=== PATIENT | male | born 1975 | race Two or more races ===

== ENCOUNTER 2023-08-01 09:31 | Inpatient (IN) | payer MEDICAID ==
[~2023-08-01] VITALS: Ht 172.7 cm; Wt 222.5 kg
[2023-08-01] VITALS (22 sets, daily range): BP systolic 90–194; BP diastolic 37–103; PULSE 71–116; RESP 11–28; O2SAT 82–99
[~2023-08-01 09:31] MED LIST: LYR25C CORPAK; [UNRECOGNIZED DRUG - CODE] PO; [UNRECOGNIZED DRUG - OTHER] TOP; etomidate 2mg/ml inj. ONE
[2023-08-01 10:19] LABS: ABG BASE EXCESS -1.2 mmol/L (-2.0-2.0); ABG HCO3 34.8 mmol/L (22.0-26.0); ABG OXYGEN SATURATION 95.3 % (94-97); ABG PCO2 (T) 126.3 mmHg (35.0-48.0); ABG PH (T) 7.058 (7.340-7.440); ABG PO2 (T) 104.9 mmHg (75.0-100.0); ALLEN'S TEST POSITIVE; FCOHb 0.2 % (0.0-3.9); FHHb 4.7 % (0.0-5.0); FLOW 15 L/min; FMetHb 0.6 % (0.0-1.5); FO2Hb 94.5 % (94-97); MODE MASK - NRB; TOTAL HEMOGLOBIN 18.3 G/dl (14.0-17.9)
[2023-08-01 10:53] LABS: BASOPHILS # (AUTO) 0.1 X10'3 (0-0.2); BASOPHILS % (AUTO) 0.7 % (0-1); EOSINOPHILS % (AUTO) 0.2 % (0-6)
[2023-08-01 10:55] LABS: LYMPHOCYTES % (AUTO) 9.7 % (21-51); MEAN CORPUSCULAR HEMOGLOBIN 30.8 PG (27.0-31.0); MEAN PLATELET VOLUME 8.4 FL (7.4-10.4); MONOCYTES # (AUTO) 1.2 X10'3 (0-0.9); MONOCYTES % (AUTO) 11.7 % (2-12); NEUTROPHILS # (AUTO) 7.8 X10'3 (1.8-7.7); NEUTROPHILS % (AUTO) 77.7 % (42-75); PLATELET COUNT 261 X10'3 (140-440); WHITE BLOOD COUNT 10.1 X10'3 (4.5-11.0)
[2023-08-01 10:56] LABS: INR 1.4 INR; PROTHROMBIN TIME 14.6 SECONDS (9.0-12.0)
[2023-08-01 11:00] LABS: ALANINE AMINOTRANSFERASE 62 U/L (12-78); ALBUMIN/GLOBULIN RATIO 0.6 (1.1-1.5); ALKALINE PHOSPHATASE 86 IU/L (46-116); ANION GAP 7 (8-16); ASPARTATE AMINO TRANSFERASE 60 U/L (10-37); BILIRUBIN,TOTAL 2.7 MG/DL (0.1-1.0); BLOOD UREA NITROGEN 29 MG/DL (7-18); BUN/CREATININE RATIO 16.5 (10.0-20.0); CALCIUM 8.5 MG/DL (8.5-10.1); CHLORIDE 98 MMOL/L (99-107); CREATININE 1.76 MG/DL (0.60-1.10); GLUCOSE 129 MG/DL (70-104); SODIUM 138 MMOL/L (135-145); TOTAL CARBON DIOXIDE 33.5 MMOL/L (24-32); TOTAL PROTEIN 7.8 G/DL (6.4-8.2); eCRCL 51 ML/MIN; eGFR 42 ML/MIN
[2023-08-01 11:09] LABS: PRO BRAIN NATRIURETIC PEPTIDE 5640 PG/ML (0-125)
[2023-08-01] MEDS ORDERED: labetalol 20mg/4ml (5mg/ml) syringe IV PRN (11:20)
[2023-08-01 11:24] LABS: POTASSIUM 4.9 MMOL/L (3.5-5.1)
[2023-08-01] MEDS ORDERED: morphine 2 MG/ML inj. syringe IV PRN (11:25)
[2023-08-01] MEDS ORDERED: acetaminophen 325mg tablet PO PRN ×2 (11:25)
[2023-08-01] MEDS ORDERED: morphine 4 MG/ML inj SYRINge IV PRN (11:25)
[2023-08-01] MEDS ORDERED: ondansetron/PF 4mg/2ml inj IV PRN (11:25)
[2023-08-01] MEDS ORDERED: magnesium hydroxide 30ml (MOM) UD suspension PO PRN (11:25)
[2023-08-01 11:28] LABS: HEMATOCRIT 53.4 % (42.0-52.0); HEMOGLOBIN 17.2 g/dl (14.0-17.9); MEAN CORPUSCULAR HGB CONC 32.2 g/dL (33.0-36.5); MEAN CORPUSCULAR VOLUME 95.7 FL (78-98); RED BLOOD COUNT 5.57 X10'6 (4.70-6.10); RED CELL DISTRIBUTION WIDTH 15.3 % (11.5-14.5)
[2023-08-01 11:41] LABS: ABG HCO3 37.9 mmol/L (22.0-26.0); ABG OXYGEN SATURATION 98.7 % (94-97); ABG PCO2 (T) 126.9 mmHg (35.0-48.0); ABG PH (T) 7.093 (7.340-7.440); ABG PO2 (T) 179.4 mmHg (75.0-100.0); ALLEN'S TEST NEGATIVE; FCOHb 0.7 % (0.0-3.9); FHHb 1.3 % (0.0-5.0); FMetHb 0.7 % (0.0-1.5); FO2Hb 97.3 % (94-97); MODE MASK - BIPAP; TIDAL VOLUME 500 mL; TOTAL HEMOGLOBIN 18.3 G/dl (14.0-17.9)
[2023-08-01 12:10] LABS: NUCLEATED RED BLOOD CELLS 3 /100WBC (0-0); TOTAL CELLS COUNTED 100
[2023-08-01 12:11] LABS: ANISOCYTOSIS 1+; PLATELET ESTIMATE NORMAL; POIKILOCYTOSIS FEW; POLYCHROMASIA FEW; STOMATOCYTES FEW
[2023-08-01] MEDS: hydrALAZINE 20mg/ml inj. IV ONE (12:11)
[2023-08-01] MEDS: propofol 1000mg/100ml bottle 100 ML IV ONE (12:11)
[2023-08-01 12:14] LABS: HEMOGLOBIN A1C 6.1 % (4.5-6.2)
[2023-08-01] MEDS: furosemide 10 MG/1 ML 10ml inj IV ONE (12:20)
[2023-08-01] MEDS: LIDOcaine 2% 10ml TOPICAL JELLY (Urojet) TP ONE (12:20)
[2023-08-01 12:27] LABS: CHOL/HDL RATIO 3.6 (0.00-4.99); CHOLESTEROL 140 MG/DL (0-200); FREE T4 (FREE THYROXINE) 1.09 NG/DL (0.73-1.40); HDL CHOLESTEROL 39 MG/DL (35-60); LDL CHOLESTEROL 90 MG/DL (50-100); TRIGLYCERIDES 96 MG/DL (20-135)
[2023-08-01 12:51] LABS: THYROID STIMULATING HORMONE 3.99 ulU/ml (0.34-4.50)
[2023-08-01] MEDS: LidoCAINE 2% Topical Jelly 11mL syringe (UROJET) TOP ONE (13:38)
[2023-08-01] MEDS: fentaNYL/PF 50MCG/1 ML 2ML syringe IV PRN (13:39)
[2023-08-01] MEDS: propofol 1000mg/100ml bottle 100 ML IV SCH ×2 (13:40→20:50)
[2023-08-01] MEDS: FENTANYL-0.9 % NACL/PF 100 ML IV PRN (13:42)
[2023-08-01] MEDS: CefTRIAXone/D5W-Rocephin 1gm 50 ML IV SCH (13:49)
[2023-08-01 14:20] LABS: ABG BASE EXCESS -1.3 mmol/L (-2.0-2.0); ABG OXYGEN SATURATION 88.9 % (94-97); ABG PCO2 (T) 80.5 mmHg (35.0-48.0); ABG PO2 (T) 63.1 mmHg (75.0-100.0); ALLEN'S TEST POSITIVE; FCOHb 1.5 % (0.0-3.9); FHHb 10.9 % (0.0-5.0); FMetHb 0.3 % (0.0-1.5); FO2Hb 87.3 % (94-97); MODE PRVC; PATIENT TEMPERATURE 37.1; PEEP 15 cm H2O; RESPIRATORY RATE 22 b/min; TIDAL VOLUME 400 mL; TOTAL HEMOGLOBIN 17.6 G/dl (14.0-17.9)
[2023-08-01] MEDS: azithromycin/NS 500mg/250ml 250 ML IV SCH (18:40)
[2023-08-01] MEDS ORDERED: furosemide 40mg/4ml inj IV SCH (20:00)
[2023-08-01] MEDS: heparin, porcine 5000 units/ml vial SQ SCH (20:22)
[2023-08-01 20:46] LABS: BILIRUBIN,URINE SMALL (Neg); CLARITY,URINE SLIGHTLY CLOUDY (Clear); COLOR,URINE YELLOW (Yellow); GLUCOSE, URINE NEGATIVE (Neg); KETONES,URINE NEGATIVE (Neg); LEUKOCYTE ESTERASE ,URINE TRACE (Neg); NITRITES, URINE NEGATIVE (Neg); OCCULT BLOOD,URINE SMALL (Neg); PROTEIN,URINE 30 mg/dl (Neg)
[2023-08-01] MEDS: furosemide 40mg/4ml inj IV SCH (20:51)
[2023-08-01 20:57] LABS: UA COLLECTION TYPE FOLEY CATH
[2023-08-01 21:01] LABS: BACTERIA,URINE FEW /HPF (Neg); SQUAMOUS EPITHELIAL CELL,UR FEW /LPF (FEW); TRANSITIONAL EPI CELLS,URINE FEW /HPF
[2023-08-01 21:59] LABS: URINE AMPHETAMINE SCREEN NEGATIVE (Neg); URINE BARBITUATE SCREEN NEGATIVE (Neg); URINE BENZODIAZEPINES SCREEN NEGATIVE (Neg); URINE CANNABINOID SCREEN POSITIVE (Neg); URINE COCAINE SCREEN NEGATIVE (Neg); URINE METHADONE SCREEN NEGATIVE (Neg); URINE OPIATE SCREEN NEGATIVE (Neg); URINE PHENCYCLIDINE SCREEN NEGATIVE (Neg)
[2023-08-02] VITALS (33 sets, daily range): BP systolic 85–119; BP diastolic 37–78; PULSE 73–99; RESP 12–22; O2SAT 68–96
[2023-08-02 03:14] LABS: ABG BASE EXCESS 7.1 mmol/L (-2.0-2.0); ABG HCO3 32.5 mmol/L (22.0-26.0); ABG OXYGEN SATURATION 95.1 % (94-97); ABG PCO2 (T) 46.9 mmHg (35.0-48.0); ABG PH (T) 7.457 (7.340-7.440); ABG PO2 (T) 70.4 mmHg (75.0-100.0); ALLEN'S TEST Modified; FCOHb 0.9 % (0.0-3.9); FHHb 4.9 % (0.0-5.0); FMetHb 0.1 % (0.0-1.5); FO2Hb 94.1 % (94-97); MODE ac/prvc; PATIENT TEMPERATURE 36.5; PEEP 15 cm H2O; RESPIRATORY RATE 22 b/min; TIDAL VOLUME 425 mL
[2023-08-02 04:43] LABS: BASOPHILS # (AUTO) 0.1 X10'3 (0-0.2); BASOPHILS % (AUTO) 0.6 % (0-1); EOSINOPHILS # (AUTO) 0.2 X10'3 (0-0.9); EOSINOPHILS % (AUTO) 1.8 % (0-6); HEMATOCRIT 47.8 % (42.0-52.0); HEMOGLOBIN 15.4 g/dl (14.0-17.9); LYMPHOCYTES % (AUTO) 9.6 % (21-51); MEAN CORPUSCULAR HGB CONC 32.2 g/dL (33.0-36.5); MEAN CORPUSCULAR VOLUME 96.1 FL (78-98); MONOCYTES # (AUTO) 1.3 X10'3 (0-0.9); NEUTROPHILS # (AUTO) 7.7 X10'3 (1.8-7.7); PLATELET COUNT 165 X10'3 (140-440); RED BLOOD COUNT 4.97 X10'6 (4.70-6.10); RED CELL DISTRIBUTION WIDTH 15.8 % (11.5-14.5); WHITE BLOOD COUNT 10.3 X10'3 (4.5-11.0)
[2023-08-02 04:55] LABS: APTT 26 SECONDS (22-32); INR 1.2 INR; PROTHROMBIN TIME 13.1 SECONDS (9.0-12.0)
[2023-08-02 05:05] LABS: ALANINE AMINOTRANSFERASE 63 U/L (12-78); ALBUMIN 2.1 G/DL (3.4-5.0); ALBUMIN/GLOBULIN RATIO 0.6 (1.1-1.5); ALKALINE PHOSPHATASE 53 IU/L (46-116); ANION GAP 4 (8-16); ASPARTATE AMINO TRANSFERASE 59 U/L (10-37); BILIRUBIN,TOTAL 2.6 MG/DL (0.1-1.0); BLOOD UREA NITROGEN 30 MG/DL (7-18); BUN/CREATININE RATIO 17.4 (10.0-20.0); CALCIUM 8.3 MG/DL (8.5-10.1); CHLORIDE 102 MMOL/L (99-107); CREATININE 1.72 MG/DL (0.60-1.10); GLUCOSE 89 MG/DL (70-104); MAGNESIUM 1.7 MG/DL (1.5-2.4); PHOSPHORUS 4.9 MG/DL (2.3-4.5); PRO BRAIN NATRIURETIC PEPTIDE 2242 PG/ML (0-125); SODIUM 142 MMOL/L (135-145); TOTAL CARBON DIOXIDE 35.9 MMOL/L (24-32); TOTAL PROTEIN 5.5 G/DL (6.4-8.2); TRIGLYCERIDES 129 MG/DL (20-135); eCRCL 52 ML/MIN; eGFR 43 ML/MIN
[2023-08-02] MEDS: pantoprazole 40 MG vial IV SCH ×3 (06:35→20:08)
[2023-08-02] MEDS ORDERED: acetaminophen 325mg/10.15ml oral unit dose solution OGT PRN ×2 (10:56)
[2023-08-02] MEDS ORDERED: NO HOME MEDS (11:15)
[2023-08-02] MEDS: mineral oil/petrolatum ophthal oint EACHEYE SCH (14:08)
[2023-08-02] MEDS ORDERED: heparin 10,000 units/1 ML INJ IV ONE (21:05)
[2023-08-02] MEDS: aspirin 81mg tab.chew PO ONE (21:27)
[2023-08-02 21:31] LABS: MEAN CORPUSCULAR VOLUME 95.7 FL (78-98); NEUTROPHILS # (AUTO) 8.3 X10'3 (1.8-7.7); RED CELL DISTRIBUTION WIDTH 15.4 % (11.5-14.5)
[2023-08-02 21:33] LABS: BASOPHILS % (AUTO) 0.4 % (0-1); EOSINOPHILS # (AUTO) 0.2 X10'3 (0-0.9); EOSINOPHILS % (AUTO) 1.5 % (0-6); HEMATOCRIT 48.7 % (42.0-52.0); HEMOGLOBIN 15.6 g/dl (14.0-17.9); LYMPHOCYTES # (AUTO) 0.7 X10'3 (1.1-4.8); LYMPHOCYTES % (AUTO) 6.5 % (21-51); MEAN CORPUSCULAR HEMOGLOBIN 30.6 PG (27.0-31.0); MEAN PLATELET VOLUME 8.4 FL (7.4-10.4); MONOCYTES # (AUTO) 1.1 X10'3 (0-0.9); MONOCYTES % (AUTO) 10.7 % (2-12); NEUTROPHILS % (AUTO) 80.9 % (42-75); PLATELET COUNT 185 X10'3 (140-440); RED BLOOD COUNT 5.09 X10'6 (4.70-6.10); WHITE BLOOD COUNT 10.2 X10'3 (4.5-11.0)
[2023-08-02] MEDS: heparin 25,000 UNIT/250ml bag 250 ML IV PRN (21:39)
[2023-08-02 21:48] LABS: APTT 27 SECONDS (22-32); INR 1.3 INR; PROTHROMBIN TIME 13.7 SECONDS (9.0-12.0)
[2023-08-02] MEDS: MESSAGE TO NURSING IV ONE (22:16)
[2023-08-03] VITALS (35 sets, daily range): BP systolic 77–118; BP diastolic 29–66; PULSE 82–103; RESP 22–24; O2SAT 69–87
[2023-08-03] MEDS: methylPREDNISolone sod succ 125mg/2ml vial IV ONE (00:58)
[2023-08-03] MEDS: NORepinephrine 8mg/ 250ml NS 250 ML IV SCH (00:59)
[2023-08-03 01:37] LABS: BASOPHILS # (AUTO) 0.2 X10'3 (0-0.2); BASOPHILS % (AUTO) 1.9 % (0-1); EOSINOPHILS # (AUTO) 0.2 X10'3 (0-0.9); EOSINOPHILS % (AUTO) 2.1 % (0-6); HEMATOCRIT 47.5 % (42.0-52.0); HEMOGLOBIN 15.1 g/dl (14.0-17.9); LYMPHOCYTES # (AUTO) 0.6 X10'3 (1.1-4.8); LYMPHOCYTES % (AUTO) 5.2 % (21-51); MEAN CORPUSCULAR HEMOGLOBIN 30.3 PG (27.0-31.0); MEAN CORPUSCULAR HGB CONC 31.8 g/dL (33.0-36.5); MEAN CORPUSCULAR VOLUME 95.3 FL (78-98); MEAN PLATELET VOLUME 8.4 FL (7.4-10.4); MONOCYTES # (AUTO) 1.2 X10'3 (0-0.9); MONOCYTES % (AUTO) 10.5 % (2-12); NEUTROPHILS % (AUTO) 80.3 % (42-75); PLATELET COUNT 194 X10'3 (140-440); RED BLOOD COUNT 4.99 X10'6 (4.70-6.10); RED CELL DISTRIBUTION WIDTH 15.4 % (11.5-14.5); WHITE BLOOD COUNT 11.2 X10'3 (4.5-11.0)
[2023-08-03 01:50] LABS: ALANINE AMINOTRANSFERASE 60 U/L (12-78); ALBUMIN 2.1 G/DL (3.4-5.0); ALBUMIN/GLOBULIN RATIO 0.5 (1.1-1.5); ALKALINE PHOSPHATASE 67 IU/L (46-116); ANION GAP 2 (8-16); ASPARTATE AMINO TRANSFERASE 85 U/L (10-37); BILIRUBIN,TOTAL 2.9 MG/DL (0.1-1.0); BLOOD UREA NITROGEN 31 MG/DL (7-18); BUN/CREATININE RATIO 15.8 (10.0-20.0); CALCIUM 8.3 MG/DL (8.5-10.1); CHLORIDE 99 MMOL/L (99-107); CREATININE 1.96 MG/DL (0.60-1.10); GLUCOSE 81 MG/DL (70-104); POTASSIUM 4.2 MMOL/L (3.5-5.1); SODIUM 140 MMOL/L (135-145); TOTAL CARBON DIOXIDE 39.1 MMOL/L (24-32); eCRCL 46 ML/MIN; eGFR 37 ML/MIN
[2023-08-03 01:54] LABS: MAGNESIUM 1.5 MG/DL (1.5-2.4); PHOSPHORUS 5.7 MG/DL (2.3-4.5)
[2023-08-03 03:56] LABS: ABG BASE EXCESS 5.9 mmol/L (-2.0-2.0); ABG PCO2 (T) 64.3 mmHg (35.0-48.0); ABG PH (T) 7.344 (7.340-7.440); ABG PO2 (T) 49.1 mmHg (75.0-100.0); ALLEN'S TEST Modified; FHHb 18.8 % (0.0-5.0); FO2Hb 80.2 % (94-97); MODE ac/prvc; PATIENT TEMPERATURE 37.6; PEEP 18 cm H2O; RESPIRATORY RATE 24 b/min; TIDAL VOLUME 425 mL
[2023-08-03 04:07] LABS: INR 1.2 INR; PROTHROMBIN TIME 12.2 SECONDS (9.0-12.0)
[2023-08-03] MEDS: heparin 10,000 units/1 ML INJ IV PRN (04:21)
[2023-08-03] MEDS: MESSAGE TO NURSING IV ONE ×3 (04:26→22:09)
[2023-08-03] MEDS: atorvastatin 10mg tablet PO SCH (07:29)
[2023-08-03] MEDS: aspirin 81mg tab.chew PO SCH (07:29)
[2023-08-03] MEDS: methylPREDNISolone sod succ 125mg/2ml vial IV SCH (07:31)
[2023-08-03] MEDS: methylPREDNISolone sod succ/PF 40mg inj. IV SCH (16:16)
[2023-08-03] MEDS: midazolam 100mg in NS 100ml 100 ML IV PRN (16:17)
[2023-08-03] MEDS: CISatracurium besylate inj. 100 MG in normal saline 100ml IV soln 90 ML IV PRN (20:34)
[2023-08-04] VITALS (36 sets, daily range): BP systolic 110–138; BP diastolic 55–84; PULSE 62–76; RESP 23–24; O2SAT 89–94
[2023-08-04] MEDS: heparin 25,000 UNIT/250ml bag 250 ML IV PRN (00:29)
[2023-08-04 02:35] LABS: APTT 48 SECONDS (22-32); INR 1.3 INR; PROTHROMBIN TIME 13.7 SECONDS (9.0-12.0)
[2023-08-04 02:36] LABS: ALANINE AMINOTRANSFERASE 347 U/L (12-78); ALBUMIN 1.7 G/DL (3.4-5.0); ALBUMIN/GLOBULIN RATIO 0.4 (1.1-1.5); ALKALINE PHOSPHATASE 58 IU/L (46-116); ANION GAP 3 (8-16); ASPARTATE AMINO TRANSFERASE 408 U/L (10-37); BILIRUBIN,TOTAL 3.4 MG/DL (0.1-1.0); BLOOD UREA NITROGEN 41 MG/DL (7-18); BUN/CREATININE RATIO 17.1 (10.0-20.0); CALCIUM 7.8 MG/DL (8.5-10.1); CHLORIDE 100 MMOL/L (99-107); GLUCOSE 139 MG/DL (70-104); MAGNESIUM 1.7 MG/DL (1.5-2.4); PHOSPHORUS 5.7 MG/DL (2.3-4.5); POTASSIUM 4.3 MMOL/L (3.5-5.1); PREALBUMIN 8.2 MG/DL (19-36); SODIUM 141 MMOL/L (135-145); TOTAL CARBON DIOXIDE 37.6 MMOL/L (24-32); TOTAL PROTEIN 5.5 G/DL (6.4-8.2); eCRCL 37 ML/MIN; eGFR 29 ML/MIN
[2023-08-04 02:49] LABS: LYMPHOCYTES # (AUTO) 0.4 X10'3 (1.1-4.8); MONOCYTES # (AUTO) 0.6 X10'3 (0-0.9); NEUTROPHILS % (AUTO) 89.3 % (42-75)
[2023-08-04 02:51] LABS: BASOPHILS % (AUTO) 0.2 % (0-1); EOSINOPHILS % (AUTO) 0.1 % (0-6); LYMPHOCYTES % (AUTO) 4.1 % (21-51); MEAN CORPUSCULAR HEMOGLOBIN 30.4 PG (27.0-31.0); MEAN CORPUSCULAR HGB CONC 31.9 g/dL (33.0-36.5); MEAN CORPUSCULAR VOLUME 95.4 FL (78-98); MEAN PLATELET VOLUME 8.7 FL (7.4-10.4); MONOCYTES % (AUTO) 6.3 % (2-12); NEUTROPHILS # (AUTO) 9.1 X10'3 (1.8-7.7); PLATELET COUNT 156 X10'3 (140-440); RED BLOOD COUNT 4.61 X10'6 (4.70-6.10); RED CELL DISTRIBUTION WIDTH 15.4 % (11.5-14.5); WHITE BLOOD COUNT 10.2 X10'3 (4.5-11.0)
[2023-08-04] MEDS: MESSAGE TO NURSING IV ONE ×4 (03:06→21:38)
[2023-08-04 03:29] LABS: ABG BASE EXCESS 7.8 mmol/L (-2.0-2.0); ABG HCO3 34.2 mmol/L (22.0-26.0); ABG OXYGEN SATURATION 92.2 % (94-97); ABG PCO2 (T) 52.1 mmHg (35.0-48.0); ABG PH (T) 7.432 (7.340-7.440); ABG PO2 (T) 60.2 mmHg (75.0-100.0); ALLEN'S TEST Modified; FCOHb 0.8 % (0.0-3.9); FHHb 7.7 % (0.0-5.0); FMetHb 0.1 % (0.0-1.5); FO2Hb 91.4 % (94-97); MODE prvc; PATIENT TEMPERATURE 36.2; PEEP 15 cm H2O; RESPIRATORY RATE 24 b/min; TIDAL VOLUME 425 mL; TOTAL HEMOGLOBIN 16.1 G/dl (14.0-17.9)
[2023-08-04] MEDS: aspirin 81mg tab.chew OGT SCH (07:54)
[2023-08-04] MEDS: atorvastatin 10mg tablet OGT SCH (07:54)
[2023-08-04] MEDS: metolazone 2.5mg tablet OGT SCH (09:08)
[2023-08-04] MEDS: furosemide 10 MG/1 ML 10ml inj IV SCH (09:50)
[2023-08-04] MEDS: azithromycin/NS 500mg/250ml 250 ML IV SCH (11:30)
[2023-08-04] MEDS: fentaNYL 2,500 MCG in Normal Saline 250ml IV soln bag IV SCH (14:27)
[2023-08-04 19:30] LABS: ANION GAP 3 (8-16); CHLORIDE 99 MMOL/L (99-107); GLUCOSE 128 MG/DL (70-104); POTASSIUM 3.7 MMOL/L (3.5-5.1); SODIUM 143 MMOL/L (135-145)
[2023-08-04 19:31] LABS: ALANINE AMINOTRANSFERASE 360 U/L (12-78); ALBUMIN 1.9 G/DL (3.4-5.0); ALBUMIN/GLOBULIN RATIO 0.5 (1.1-1.5); ALKALINE PHOSPHATASE 61 IU/L (46-116); ASPARTATE AMINO TRANSFERASE 284 U/L (10-37); BILIRUBIN,TOTAL 3.2 MG/DL (0.1-1.0); BLOOD UREA NITROGEN 44 MG/DL (7-18); BUN/CREATININE RATIO 23.2 (10.0-20.0); MAGNESIUM 1.7 MG/DL (1.5-2.4); PRO BRAIN NATRIURETIC PEPTIDE 1720 PG/ML (0-125); eCRCL 47 ML/MIN; eGFR 38 ML/MIN
[2023-08-04 19:36] LABS: TOTAL CARBON DIOXIDE 40.8 MMOL/L (24-32)
[2023-08-05] VITALS (36 sets, daily range): BP systolic 100–153; BP diastolic 44–108; PULSE 59–68; RESP 20–24; O2SAT 87–90
[2023-08-05 03:14] LABS: BASOPHILS % (AUTO) 0.4 % (0-1); EOSINOPHILS % (AUTO) 0.5 % (0-6); HEMATOCRIT 48.8 % (42.0-52.0); HEMOGLOBIN 15.6 g/dl (14.0-17.9); LYMPHOCYTES # (AUTO) 0.3 X10'3 (1.1-4.8); LYMPHOCYTES % (AUTO) 3.5 % (21-51); MEAN CORPUSCULAR HEMOGLOBIN 30.1 PG (27.0-31.0); MEAN CORPUSCULAR HGB CONC 31.9 g/dL (33.0-36.5); MEAN CORPUSCULAR VOLUME 94.4 FL (78-98); MONOCYTES # (AUTO) 0.5 X10'3 (0-0.9); MONOCYTES % (AUTO) 5.7 % (2-12); NEUTROPHILS # (AUTO) 7.6 X10'3 (1.8-7.7); NEUTROPHILS % (AUTO) 89.9 % (42-75); PLATELET COUNT 195 X10'3 (140-440); RED BLOOD COUNT 5.17 X10'6 (4.70-6.10); RED CELL DISTRIBUTION WIDTH 14.9 % (11.5-14.5); WHITE BLOOD COUNT 8.5 X10'3 (4.5-11.0)
[2023-08-05 03:25] LABS: APTT 42 SECONDS (22-32); INR 1.2 INR; PROTHROMBIN TIME 13.2 SECONDS (9.0-12.0)
[2023-08-05 03:31] LABS: ALANINE AMINOTRANSFERASE 345 U/L (12-78); ALBUMIN 1.9 G/DL (3.4-5.0); ALBUMIN/GLOBULIN RATIO 0.5 (1.1-1.5); ALKALINE PHOSPHATASE 62 IU/L (46-116); ANION GAP 1 (8-16); ASPARTATE AMINO TRANSFERASE 228 U/L (10-37); BILIRUBIN,TOTAL 3.3 MG/DL (0.1-1.0); BLOOD UREA NITROGEN 47 MG/DL (7-18); CALCIUM 8.2 MG/DL (8.5-10.1); CHLORIDE 98 MMOL/L (99-107); CREATININE 1.74 MG/DL (0.60-1.10); GLUCOSE 130 MG/DL (70-104); MAGNESIUM 1.7 MG/DL (1.5-2.4); PHOSPHORUS 3.6 MG/DL (2.3-4.5); POTASSIUM 3.5 MMOL/L (3.5-5.1); SODIUM 143 MMOL/L (135-145); TOTAL PROTEIN 6.1 G/DL (6.4-8.2); eCRCL 51 ML/MIN; eGFR 42 ML/MIN
[2023-08-05 03:37] LABS: TOTAL CARBON DIOXIDE 44.1 MMOL/L (24-32)
[2023-08-05] MEDS: CISatracurium besylate inj. 200 MG in normal saline 250ml IV soln 180 ML IV PRN (03:51)
[2023-08-05 03:52] LABS: ABG BASE EXCESS 17.1 mmol/L (-2.0-2.0); ABG HCO3 42.9 mmol/L (22.0-26.0); ABG OXYGEN SATURATION 91.2 % (94-97); ABG PH (T) 7.548 (7.340-7.440); ABG PO2 (T) 54.6 mmHg (75.0-100.0); ALLEN'S TEST POSITIVE; FCOHb 0.7 % (0.0-3.9); FHHb 8.7 % (0.0-5.0); FO2Hb 90.6 % (94-97); MODE VENT - AC; PATIENT TEMPERATURE 36.1; PEEP 15 cm H2O; RESPIRATORY RATE 24 b/min; TIDAL VOLUME 425 mL; TOTAL HEMOGLOBIN 16.8 G/dl (14.0-17.9)
[2023-08-05] MEDS: MESSAGE TO NURSING IV ONE ×4 (04:08→18:30)
[2023-08-05 08:44] LABS: ALBUMIN 1.9 G/DL (3.4-5.0); BLOOD UREA NITROGEN 47 MG/DL (7-18); BUN/CREATININE RATIO 27.5 (10.0-20.0); CALCIUM 8.3 MG/DL (8.5-10.1); CHLORIDE 96 MMOL/L (99-107); CREATININE 1.71 MG/DL (0.60-1.10); GLUCOSE 147 MG/DL (70-104); MAGNESIUM 1.6 MG/DL (1.5-2.4); PHOSPHORUS 4.1 MG/DL (2.3-4.5); POTASSIUM 3.3 MMOL/L (3.5-5.1); SODIUM 143 MMOL/L (135-145); eCRCL 52 ML/MIN; eGFR 43 ML/MIN
[2023-08-05 09:00] LABS: ANION GAP 0 (8-16)
[2023-08-05 09:04] LABS: TOTAL CARBON DIOXIDE 47.4 MMOL/L (24-32)
[2023-08-05] MEDS: magnesium hydroxide 30ml (MOM) UD suspension OGT PRN (11:06)
[2023-08-05] MEDS ORDERED: magnesium 4gm in 100ml NS 100 ML IV PRN (13:10)
[2023-08-05] MEDS ORDERED: sodium phosphate inj. 15 MMOL in dextrose 5%-water 250 ML IV PRN (13:10)
[2023-08-05] MEDS ORDERED: sodium phosphate inj. 30 MMOL in dextrose 5%-water 250 ML IV PRN (13:10)
[2023-08-05] MEDS ORDERED: magnesium 2GM in 50ml NS 50 ML IV PRN (13:10)
[2023-08-05] MEDS: potassium Cl 40MEQ/270ML bag 270 ML IV PRN (14:54)
[2023-08-05 17:42] LABS: BLOOD UREA NITROGEN 48 MG/DL (7-18); BUN/CREATININE RATIO 28.9 (10.0-20.0); CALCIUM 8.3 MG/DL (8.5-10.1); CHLORIDE 98 MMOL/L (99-107); CREATININE 1.66 MG/DL (0.60-1.10); GLUCOSE 139 MG/DL (70-104); MAGNESIUM 1.7 MG/DL (1.5-2.4); PHOSPHORUS 4.3 MG/DL (2.3-4.5); POTASSIUM 3.7 MMOL/L (3.5-5.1); SODIUM 146 MMOL/L (135-145); eCRCL 54 ML/MIN; eGFR 45 ML/MIN
[2023-08-05 17:54] LABS: ANION GAP 1 (8-16)
[2023-08-05 17:58] LABS: TOTAL CARBON DIOXIDE 47.2 MMOL/L (24-32)
[2023-08-06] VITALS (23 sets, daily range): BP systolic 34–124; BP diastolic 20–76; PULSE 29–115; RESP 10–20; O2SAT 77–89
[2023-08-06] MEDS: methylPREDNISolone sod succ 125mg/2ml vial IV STA (00:34)
[2023-08-06] MEDS: CISatracurium besylate 100 MG in NS 100ml IV IV PRN (00:36)
[2023-08-06 01:34] LABS: BASOPHILS % (AUTO) 0.1 % (0-1); EOSINOPHILS % (AUTO) 0 % (0-6); HEMATOCRIT 49.5 % (42.0-52.0); LYMPHOCYTES # (AUTO) 0.3 X10'3 (1.1-4.8); LYMPHOCYTES % (AUTO) 3.8 % (21-51); MEAN CORPUSCULAR HEMOGLOBIN 30.7 PG (27.0-31.0); MEAN CORPUSCULAR HGB CONC 32.3 g/dL (33.0-36.5); MEAN CORPUSCULAR VOLUME 95.1 FL (78-98); MEAN PLATELET VOLUME 8.7 FL (7.4-10.4); MONOCYTES # (AUTO) 0.8 X10'3 (0-0.9); MONOCYTES % (AUTO) 11.3 % (2-12); NEUTROPHILS # (AUTO) 6.4 X10'3 (1.8-7.7); NEUTROPHILS % (AUTO) 84.8 % (42-75); PLATELET COUNT 189 X10'3 (140-440); RED BLOOD COUNT 5.21 X10'6 (4.70-6.10); RED CELL DISTRIBUTION WIDTH 15.2 % (11.5-14.5); WHITE BLOOD COUNT 7.5 X10'3 (4.5-11.0)
[2023-08-06 01:45] LABS: APTT 53 SECONDS (22-32); INR 1.2 INR; PROTHROMBIN TIME 13.1 SECONDS (9.0-12.0)
[2023-08-06 01:47] LABS: ALANINE AMINOTRANSFERASE 326 U/L (12-78); ALBUMIN 2.1 G/DL (3.4-5.0); ALBUMIN/GLOBULIN RATIO 0.5 (1.1-1.5); ALKALINE PHOSPHATASE 59 IU/L (46-116); ASPARTATE AMINO TRANSFERASE 162 U/L (10-37); BLOOD UREA NITROGEN 50 MG/DL (7-18); BUN/CREATININE RATIO 31.1 (10.0-20.0); CALCIUM 8.6 MG/DL (8.5-10.1); CHLORIDE 97 MMOL/L (99-107); CREATININE 1.61 MG/DL (0.60-1.10); GLUCOSE 146 MG/DL (70-104); MAGNESIUM 1.8 MG/DL (1.5-2.4); PHOSPHORUS 4.4 MG/DL (2.3-4.5); POTASSIUM 3.3 MMOL/L (3.5-5.1); SODIUM 147 MMOL/L (135-145); TOTAL PROTEIN 6.4 G/DL (6.4-8.2); eCRCL 55 ML/MIN; eGFR 46 ML/MIN
[2023-08-06 02:02] LABS: ANION GAP 0 (8-16)
[2023-08-06 02:04] LABS: TOTAL CARBON DIOXIDE > 50 MMOL/L (24-32)
[2023-08-06] MEDS: MESSAGE TO NURSING IV ONE ×2 (02:26→08:27)
[2023-08-06 02:57] LABS: ABG BASE EXCESS 21.2 mmol/L (-2.0-2.0); ABG HCO3 49.1 mmol/L (22.0-26.0); ABG OXYGEN SATURATION 91.3 % (94-97); ABG PCO2 (T) 61.7 mmHg (35.0-48.0); ABG PH (T) 7.518 (7.340-7.440); ABG PO2 (T) 58.2 mmHg (75.0-100.0); ALLEN'S TEST Modified; FCOHb 0.8 % (0.0-3.9); FHHb 8.6 % (0.0-5.0); FMetHb 0.1 % (0.0-1.5); FO2Hb 90.5 % (94-97); MODE VENT - PRVC; PATIENT TEMPERATURE 36.7; PEEP 18 cm H2O; RESPIRATORY RATE 20 b/min; TIDAL VOLUME 425 mL; TOTAL HEMOGLOBIN 17.2 G/dl (14.0-17.9)
[2023-08-06 03:51] LABS: BILIRUBIN,URINE NEGATIVE (Neg); CLARITY,URINE CLEAR (Clear); COLOR,URINE STRAW (Yellow); GLUCOSE, URINE NEGATIVE (Neg); KETONES,URINE NEGATIVE (Neg); LEUKOCYTE ESTERASE ,URINE NEGATIVE (Neg); NITRITES, URINE NEGATIVE (Neg); OCCULT BLOOD,URINE SMALL (Neg); PH,URINE 7.5 (4.8-8.0); PROTEIN,URINE NEGATIVE (Neg); UROBILINOGEN,URINE 0.2 E.U/dL (0.2-1.0)
[2023-08-06 04:20] LABS: UA COLLECTION TYPE FOLEY CATH
[2023-08-06 04:23] LABS: HYALINE CASTS 0-3 /LPF (NEGATIVE); SQUAMOUS EPITHELIAL CELL,UR FEW /LPF (FEW)
[2023-08-06 04:24] LABS: MUCUS STRANDS FEW /LPF (Neg)
[2023-08-06 04:25] LABS: BACTERIA,URINE NONE SEEN /HPF (Neg); WBC,URINE 0-4 /HPF (0-4)
[2023-08-06] MEDS: methylPREDNISolone sod succ 125mg/2ml vial IV SCH (05:55)
[2023-08-06 06:21] LABS: ALBUMIN 2.1 G/DL (3.4-5.0); BLOOD UREA NITROGEN 50 MG/DL (7-18); BUN/CREATININE RATIO 31.4 (10.0-20.0); CALCIUM 8.7 MG/DL (8.5-10.1); CHLORIDE 97 MMOL/L (99-107); CREATININE 1.59 MG/DL (0.60-1.10); GLUCOSE 152 MG/DL (70-104); MAGNESIUM 1.7 MG/DL (1.5-2.4); PHOSPHORUS 4.1 MG/DL (2.3-4.5); POTASSIUM 3.6 MMOL/L (3.5-5.1); SODIUM 146 MMOL/L (135-145); eCRCL 56 ML/MIN; eGFR 47 ML/MIN
[2023-08-06 06:34] LABS: ANION GAP -1 (8-16)
[2023-08-06 06:44] LABS: TOTAL CARBON DIOXIDE > 50 MMOL/L (24-32)
[2023-08-06] MEDS: furosemide 40mg/4ml inj IV SCH (07:29)
[2023-08-06] MEDS: K and/or MAG REPLACEMENT MC SCH (08:00)
[2023-08-06] MEDS: heparin 25,000 UNIT/250ml bag 250 ML IV PRN (08:14)
[2023-08-06] MEDS: erythromycin base 250mg tablet PO SCH (09:49)
[2023-08-06 10:32] LABS: ABG BASE EXCESS 22.7 mmol/L (-2.0-2.0); ABG HCO3 51.7 mmol/L (22.0-26.0); ABG OXYGEN SATURATION 90.3 % (94-97); ABG PCO2 (T) 69.1 mmHg (35.0-48.0); ABG PH (T) 7.492 (7.340-7.440); ABG PO2 (T) 59.7 mmHg (75.0-100.0); ALLEN'S TEST POSITIVE; FCOHb 0.8 % (0.0-3.9); FHHb 9.6 % (0.0-5.0); FMetHb 0.1 % (0.0-1.5); FO2Hb 89.5 % (94-97); MODE AC PRVC; PEEP 18 cm H2O; RESPIRATORY RATE 14 b/min; TIDAL VOLUME 425 mL; TOTAL HEMOGLOBIN 17.1 G/dl (14.0-17.9)
== END 2023-08-06 17:15 | DRG 133 ==
LOC: ER 09:31 → CICU 2S 11:30
PROVIDERS: ADMIT Internal Medicine Critical Care Medicine; ATTEND Internal Medicine Critical Care Medicine
DX: J80 Acute respiratory distress syndrome (principal); R65.21 Severe sepsis with septic shock; A41.9 Sepsis, unspecified organism; N17.9 Acute kidney failure, unspecified; J18.9 Pneumonia, unspecified organism; E87.1 Hypo-osmolality and hyponatremia; E87.29 Other acidosis; Z68.45 Body mass index [BMI] 70 or greater, adult; G89.29 Other chronic pain; G47.33 Obstructive sleep apnea (adult) (pediatric); E80.6 Other disorders of bilirubin metabolism; E66.01 Morbid (severe) obesity due to excess calories; N18.9 Chronic kidney disease, unspecified; J98.4 Other disorders of lung; F10.10 Alcohol abuse, uncomplicated; Z20.822 Contact with and (suspected) exposure to COVID-19; Z66 Do not resuscitate
CPT/HCPCS: 36415; 36600; 71045; 80048; 80053; 80061; 80305; 81001; 82436; 82570; 82803; 82948; 83036; 83605; 83735; 83880; 84100; 84134; 84145; 84300; 84439; 84443; 84478; 84484; 85007; 85018; 85025; 85610; 85730; 87040; 87070; 87081; 87088; 87502; 87503; 87811; 93005; 93308; 94002; 94003; 94660; 94760; 99291; A4333; A4615; A6209; A6212; A6213; A6250; A6258; A6402; A6449; A9900; C1751; C1758; C9113; G0378; J0360; J0456; J0696; J1644; J1940; J2704; J2920; J2930; J3010; J3480; J3490; J7040; J7050